=== PATIENT | male | born 1980 | race African-American/Black ===

== ENCOUNTER 2020-07-07 10:04 | Emergency (ER) | payer SELFPAY ==
[~2020-07-07] VITALS: Ht 170.2 cm; Wt 93.4 kg
[2020-07-07] MEDS ORDERED: Ketorolac 60mg Inj IM ONE (10:30)
--- NOTE | 2020-07-07 10:49 | NUR ---
ED Nurse Note: Pt walked into ED for L sided pain for 3 days 11/12. Pt has no L sided facial drooping, weakness, or slurred speech. Pt is alert and orientedx4, ambulatory. Pt has been seen by ERMD. He denies fall or injury.
[2020-07-07 10:50] VITALS: BP 152/97
--- NOTE | 2020-07-07 12:08 | Diagnostic Imaging Report ---
Indications: Left-sided facial and head pain for 3 days, 6 out of 10 Technique: Spiral acquisitions obtained through the brain. Angled axial and coronal 5 x 5 mm slices were reconstructed. Total dose length product 1125 mGycm. CTDI vol(s) 53 mGy. Dose reduction achieved using automated exposure control Comparison: None. Findings: No acute intracranial hemorrhage or edema, mass effect, or midline shift. Normal espinal-white differentiation. Normal size ventricles and extra-axial CSF spaces. The mastoids are clear. The calvarium is intact. Visualized orbits and sinuses are unremarkable. Impression: Negative The CT scanner at [facility] is accredited by the [employer] and the scans are performed using protocols designed to limit radiation exposure to as low as reasonably achievable to attain images of sufficient resolution adequate for diagnostic evaluation.
--- NOTE | 2020-07-07 12:16 | Diagnostic Imaging Report ---
Indication: Left-sided arm and leg pain for 3 days, 610 Technique: Spiral acquisitions obtained through the cervical spine. No IV contrast utilized. Multiplanar reconstructions were generated. Total dose length product 544 mGycm. CTDIvol(s) 20 mGy. Dose reduction achieved using automated exposure control. Comparison: none Findings: There is slight reversal of the normal cervical lordosis, otherwise normal bony alignment. Vertebral body heights are preserved. Disc spaces are preserved. No prevertebral soft tissue swelling. No acute fracture. No dislocation. No significant disc bulge or protrusion, spinal stenosis, or neural foraminal stenosis demonstrated. There is a right maxillary sinus mucous retention cyst versus polyp. Included extraspinal soft tissues are otherwise unremarkable. Impression: No acute bony trauma Incidental finding of sinus disease The CT scanner at [facility] is accredited by the [employer] and the scans are performed using protocols designed to limit radiation exposure to as low as reasonably achievable to attain images of sufficient resolution adequate for diagnostic evaluation.
--- NOTE | 2020-07-07 12:25 | Diagnostic Imaging Report ---
Indication: Left-sided pain Technique: Spiral acquisitions obtained through the abdomen and pelvis. No oral contrast utilized, per emergency room physician request No IV contrast utilized, per referring physician request.. Multiplanar reconstructions were generated. Total dose length product 455 mGycm. CTDIvol(s) 8.8 mGy. Dose reduction achieved using automated exposure control Comparison: None Findings: Lack of enteric contrast limits assessment of the GI tract. There are a few colonic diverticula. No evidence of diverticulitis. The appendix is normal. No small bowel distention. No free or loculated intraperitoneal gas or fluid is evident. Lack of IV contrast limits assessment of the solid organs. The liver, gallbladder, bile ducts, pancreas, spleen, adrenals, right kidney are unremarkable. The left kidney demonstrates a cyst in the upper pole. No retroperitoneal or mesenteric mass or adenopathy. No pelvic mass or adenopathy. The bones are unremarkable. The included lung bases are clear. Impression: Limited assessment of the GI tract, due to lack of enteric contrast administration No definite acute abnormality Colonic diverticulosis Incidental finding left upper pole renal cyst The CT scanner at [facility] is accredited by the [employer] and the scans are performed using protocols designed to limit radiation exposure to as low as reasonably achievable to attain images of sufficient resolution adequate for diagnostic evaluation.
[2020-07-07] MEDS ORDERED: FAMOTIDINE20 MG ORAL (13:05)
[2020-07-07] MEDS ORDERED: IBUPROFEN600 M1 ORAL (13:05)
[2020-07-07 13:20] VITALS: BP 137/95
--- NOTE | 2020-07-07 13:23 | NUR ---
ER DISCHARGE NOTE: Patient is cleared to be discharged per ERMD, pt is aox4, on room air, with stable vital signs. pt was given dc and prescription instructions, pt was able to verbalize understanding, pt id band removed. pt is able to ambulate with steady gait. pt took all belongings. Pt educated on cervical sprain.
--- NOTE | 2020-07-10 07:00 | Emergency Room Report ---
History of Present Illness General Chief Complaint: Pain Source: Patient Present Illness HPI Patient is a 40-year-old male who presents after increased left-sided neck pain. Denies any recent trauma. Additionally reports having some lower abdominal pain as well as leg pain. Reports having some increased sore throat. Denies any fever. No vomiting or diarrhea. Generalized body aches. Moderate headache. Denies any focal weakness. symptoms began approximate 3 days ago. Gradual onset of symptoms. 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 COVID-19 Screening: Negative COVID-19 COVID-19 Testing Source: nasal Patient History Past Medical History: see triage record Reviewed Nursing Documentation: PMH: Agreed; PSxH: Agreed Nursing Documentation-PMH Past Medical History: No History, Except For Hx Hypertension: Yes Review of Systems All Other Systems: negative except mentioned in HPI Physical Exam Vital Signs Date Time Temp Pulse Resp B/P (MAP) Pulse Ox O2 Delivery O2 Flow Rate FiO2 07/07/20 10:09 98.1 69 17 157/101 (119) 98 Room Air Sp02 EP Interpretation: reviewed, normal General Appearance: normal inspection, well appearing, no apparent distress, alert, GCS 15 Head: atraumatic ENT: normal ENT inspection, hearing grossly normal, normal voice Neck: normal inspection, full range of motion, supple, no bony tend Respiratory: normal inspection, lungs clear, normal breath sounds, no respiratory distress, no retraction, no wheezing Cardiovascular #1: regular rate, rhythm, no edema Gastrointestinal: normal inspection, normal bowel sounds, non tender, soft, no guarding, no hernia Genitourinary: no CVA tenderness Musculoskeletal: normal inspection, back normal, normal range of motion Neurologic: alert, motor strength/tone normal, 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 Differential diagnosis include was not limited to arthritis, fracture, CVA, intracranial hemorrhage among others. CT imaging was ordered due to patient's multiple complaints. CT of the head read by radiologist notes of acute intracranial hemorrhage. CT of cervical spine showed some degenerative changes without evident fracture see radiology report for full details. CT of abdomen pelvis showed no evidence of acute pathology. Patient was given prescriptions for medications for symptomatic management. He was advised to follow-up with primary care physician for recheck and return if worse. He was advised outpatient coronavirus testing. No signs of any respiratory distress or neurologic deficit at this time. This medical record is generated with [employer] property handler software. There may be some property handler discrepancies related to use of this software Last Vital Signs Date Time Temp Pulse Resp B/P (MAP) Pulse Ox O2 Delivery O2 Flow Rate FiO2 07/07/20 13:20 98.1 73 17 137/95 100 Room Air Status: improved Disposition: HOME, SELF-CARE Condition: Stable Scripts Famotidine* (Pepcid 20mg tablet*) 20 Mg Tablet 20 MG ORAL DAILY for Gerd, #30 TAB 0 Refills Prov: Nhan Lima MD 07/07/20 Ibuprofen* (MOTRIN*) 600 Mg Tablet 600 MG ORAL Q8H PRN for FOR PAIN, #20 TAB 0 Refills Prov: Nhan Lima MD 07/07/20 Referrals: NOT CHOSEN IPA/,REFERRING (PCP) primary care physician Follow up with your primary care physician in 1-2 days. Return if worse. Patient Instructions: Cervical Sprain Additional Instructions: Follow up with your doctor for recheck. Return if worse. Nhan Lima MD Jul 10, 2020 07:00
== END 2020-07-07 13:23 | disposition home or self-care (01) ==
LOC: EMR 12:41
DX: M54.2 Cervicalgia (principal); I10 Essential (primary) hypertension
CPT/HCPCS: 70450; 72125; 74176; 96372; 99284